=== PATIENT | male | born 1990 | race Two or more races ===

== ENCOUNTER 2020-07-20 11:49 | Emergency (ER) | payer OTHER ==
[2020-07-20] MEDS ORDERED: IBUPROFEN 600 MG TABLET PO STA (12:16)
--- NOTE | 2020-07-20 12:19 | ED Physician Documentation ---
History of Present Illness - Stated complaint Stated Complaint: PALPITATIONS, FEVER, HEADACHE - Chief complaint Chief Complaint: Fever - Additonal information Additional information: 29-year-old male presents to the emergency department for evaluation of fatigue, body aches chills diarrhea and low-grade temperature elevation after receiving his second Pfizer COVID-19 vaccination yesterday. He denies any pertinent past medical history including hypertension or diabetes. Denies tobacco use alcohol use. [employer]. Review of Systems Constitutional: reports: Fever, Chills, Myalgias, Fatigue Ears: reports: Reviewed and negative Nose: denies: Rhinorrhea / runny nose, Congestion, Foreign Body, Reviewed and negative Throat: reports: Reviewed and negative Cardiac: reports: Palpitations. denies: Chest pain / pressure, Pedal edema, Calf pain Respiratory: denies: Dyspnea, Cough GI: reports: Diarrhea. denies: Abdominal Pain, Nausea, Vomiting : denies: Dysuria, Frequency, Hesitancy Skin: reports: Reviewed and negative Musculoskeletal: reports: Reviewed and negative Neurologic: reports: Headache Psychiatric: reports: Reviewed and negative PD PAST MEDICAL HISTORY - Present Medications Home Medications: Ambulatory Orders Medication Instructions Recorded Confirmed No Known Home Medications 07/20/20 07/20/20 - Allergies Allergies/Adverse Reactions: Allergies Allergy/AdvReac Type Severity Reaction Status Date / Time No Known Drug Allergies Allergy Verified 07/20/20 11:57 PD ED PE NORMAL - General General: Alert and oriented X 3, No acute distress, Well developed/nourished - HEENT HEENT: PERRL, EOMI, Moist mucous membranes, Pharynx benign - Neck Neck: Supple, no meningeal sign, No adenopathy - Cardiac Cardiac: RRR, No murmur, Strong equal pulses - Respiratory Respiratory: No respiratory distress, Clear bilaterally - Abdomen Abdomen: Normal bowel sounds, Soft, Non tender - Back Back: No CVA TTP, No spinal TTP - Derm Derm: Normal color, Warm and dry, No rash - Extremities Extremities: No deformity, No tenderness to palpate, Normal ROM s pain - Neuro Neuro: Alert and oriented X 3, 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 His cardiopulmonary exam is unremarkable. He also has essentially normal vital signs. Past medical history without any worrisome problems. We discussed that the constellation of the symptoms likely represents an appropriate immune response after receiving the second COVID-19 vaccine. I did recommend fluids rest ibuprofen and Tylenol for body aches. We discussed that the symptoms typically resolve in 24 to 72 hours. Emergent return precautions were discussed Departure - Departure Disposition: 01 Home, Self Care Clinical Impression: Flu-like symptoms Condition: Stable Record reviewed to determine appropriate education?: Yes Comments: You were seen in the emergency department today for fever, body aches chills, headache diarrhea after receiving your COVID-19 vaccination yesterday. This is a very common immune system response after receiving the second vaccine. The symptoms typically resolve in 24 to 72 hours. We recommend fluids at home plenty of rest. You can take Tylenol or ibuprofen for any discomfort.
[2020-07-20 12:35] VITALS: BP 116/68
== END 2020-07-20 12:27 | disposition home or self-care (01) ==
LOC: ED 11:49
DX: R50.9 Fever, unspecified (principal); R53.83 Other fatigue; R19.7 Diarrhea, unspecified; R00.2 Palpitations; R51.9 Headache, unspecified; T50.Z95A Adverse effect of other vaccines and biological substances, initial encounter; Y84.8 Other medical procedures as the cause of abnormal reaction of the patient, or of later complication, without mention of misadventure at the time of the procedure
CPT/HCPCS: 99282; 99283; A9270

== ENCOUNTER 2020-12-29 11:50 | Emergency (ER) | payer OTHER ==
--- NOTE | 2020-12-29 12:03 | ED Physician Documentation ---
PD HPI ABD PAIN - Stated complaint Stated Complaint: NAUSEA/ABD PX - Chief complaint Chief Complaint: Abd Pain - History obtained from History obtained from: Patient - History of Present Illness Timing - onset: Today Timing - duration: Hours (3) Timing - details: Abrupt onset Pain level max: 8 Pain level now: 6 Quality: Aching, Pain Location: RUQ, Epigastric Associated symptoms: Nausea. No: Fever, Vomiting, Hematemesis, Diarrhea, Constipation, Melena, Hematochezia - Additional information Additional information: Patient is a 30-year-old male who presents to the emergency department with epigastric abdominal pain. He states that he ran a fitness test today for the [employer], afterwards returned home to the [employer], drink water and developed epigastric pain and nausea. Has been present for 2 to 3 hours. Nothing makes it better or worse. No fevers. No chills. No diarrhea or constipation. Has never had similar symptoms previously. Does not on any medications. Denies any alcohol, drug or tobacco use Review of Systems Constitutional: denies: Fever, Chills GI: denies: Vomiting, Diarrhea Skin: denies: Rash Musculoskeletal: denies: Neck pain, Back pain Neurologic: denies: Headache PD PAST MEDICAL HISTORY - Past Medical History Past Medical History: No - Past Surgical History Past Surgical History: No - Present Medications Home Medications: Ambulatory Orders Medication Instructions Recorded Confirmed Esomeprazole Magnesium [Nexium] 40 mg PO DAILY #30 cap 12/29/20 Ondansetron Odt [Zofran] 4 mg TL Q6H PRN #10 tablet 12/29/20 - Allergies Allergies/Adverse Reactions: Allergies Allergy/AdvReac Type Severity Reaction Status Date / Time No Known Drug Allergies Allergy Verified 12/29/20 12:00 - Living Situation Living Arrangement: reports: At home - Social History Does the pt smoke?: No Smoking Status: Never smoker Does the pt drink ETOH?: No Does the pt have substance abuse?: No - Immunizations Immunizations are current?: Yes PD ED PE NORMAL - Vitals Vital signs reviewed: Yes - General General: Alert and oriented X 3, No acute distress - HEENT HEENT: Moist mucous membranes - Neck Neck: Supple, no meningeal sign - Cardiac Cardiac: RRR, Strong equal pulses - Respiratory Respiratory: No respiratory distress, Clear bilaterally - Abdomen Abdomen: Soft, Non distended, Other (TTP epigastric and RUQ, negative lin's sign) - Back Back: No CVA TTP, No spinal TTP - Derm Derm: Warm and dry - Extremities Extremities: No edema - Neuro Neuro: Alert and oriented X 3 - Psych Psych: Normal mood, Normal affect Results - Vitals Vitals: Vital Signs - 24 hr 12/29/20 12/29/20 11:57 14:25 Temperature 36.7 C 36.8 C Heart Rate 93 98 Respiratory 16 18 Rate Blood Pressure 139/91 H 114/89 H O2 Saturation 99 100 Oxygen O2 Source Room air - Labs Labs: Laboratory Tests 12/29/20 12/29/20 12/29/20 12:05 12:24 12:24 WBC 13.5 H RBC 5.24 Hgb 17.9 Hct 49.8 MCV 95.0 H MCH 34.2 H MCHC 35.9 RDW 13.4 Plt Count 202 MPV 10.7 Neut # (Auto) Not Reportable Lymph # (Auto) Not Reportable [place] # (Auto) Not Reportable Eos # (Auto) Not Reportable Baso # (Auto) Not Reportable Absolute Nucleated RBC Not Reportable Total Counted 100 Band Neuts % (Manual) 4 Abnorm Lymph % (Manual) 0 Nucleated RBC % Not Reportable Neutrophils # (Manual) 11.7 H Lymphocytes # (Manual) 1.2 L Monocytes # (Manual) 0.5 Eosinophils # (Manual) 0.0 Basophils # (Manual) 0.0 Differential Comment MANUAL DIFFERENTIAL WBC Morphology NORMAL APPEARANCE Platelet Estimate NORMAL (130-450,000) Platelet Morphology NORMAL APPEARANCE RBC Morph Micro Appear NORMAL APPEARANCE Sodium 132 L Potassium 3.7 Chloride 95 L Carbon Dioxide 22 Anion Gap 15.0 H BUN 17 Creatinine 1.7 H Estimated GFR (MDRD) 48 L Glucose 76 Calcium 9.5 Total Bilirubin 1.8 H AST 40 ALT 40 Alkaline Phosphatase 65 Total Protein 8.3 H Albumin 5.0 Globulin 3.3 Albumin/Globulin Ratio 1.5 Lipase 66 H Urine Color YELLOW Urine Clarity CLEAR Urine pH 6.0 Ur Specific [place] 1.020 Urine Protein NEGATIVE Urine Glucose (UA) NEGATIVE Urine Ketones 15 H Urine Occult Blood NEGATIVE Urine Nitrite NEGATIVE Urine Bilirubin NEGATIVE Urine Urobilinogen 0.2 (NORMAL) Ur Leukocyte Esterase NEGATIVE Ur Microscopic Review NOT INDICATED Urine Culture Comments NOT INDICATED - Rads (name of study) RUQ US Radiology: Final report received, EMP read contemporaneously, See rad report (No acute abnormality) PD MEDICAL DECISION MAKING - ED course Complexity details: reviewed results, re-evaluated patient, considered differential, d/w patient ED course: Symptoms resolved with Maalox, Carafate and IV fluids. Does appear to have significant dehydration. We will have the patient recheck his labs with his doctor next week. Patient tolerating p.o. without difficulty. Asymptomatic here. No acute findings on right upper quadrant ultrasound. Patient counseled regarding signs and symptoms for which I believe and urgent re-evaluation would be necessary. Patient with good understanding of and agreement to plan and is comfortable going home at this time This document was made in part using voice recognition software. While efforts are made to proofread this document, sound alike and grammatical errors may occur. Departure - Departure Disposition: 01 Home, Self Care Clinical Impression: Dehydration Abdominal pain Qualifiers: Abdominal location: unspecified location Qualified Code(s): R10.9 - Unspecified abdominal pain Condition: Good Instructions: ED Abdominal Pain Unkn Cause, ED Dehydration Follow-Up: your,doctor in 1 week [Other] Prescriptions: Esomeprazole Magnesium [Nexium] 40 mg PO DAILY #30 cap Ondansetron Odt [Zofran] 4 mg TL Q6H PRN #10 tablet PRN Reason: Nausea / Vomiting Comments: Your testing today is normal other than dehydration. you should have your creatinine (kidney function) rechecked next week with your doctor to ensure this improves. Drink plenty of water and return if you worsen. We will start you on a medication for your stomach as well to see if this helps. [facility] prescriptions were [facility] to [facility] in [place]. Discharge Date/Time: 12/29/20 14:30
[2020-12-29] MEDS ORDERED: ONDANSETRON 4 MG/2 ML VIAL IVP STA (12:22)
[2020-12-29] MEDS ORDERED: SUCRALFATE 1 GM/10 ML UDC PO STA (12:22)
[2020-12-29] MEDS ORDERED: MAG HYDROX/AL HYDROX/SIMETH 30 ML UDC PO STA (12:22)
[2020-12-29 12:40] LABS: BILIRUBIN,URINE NEGATIVE (NEGATIVE); CLARITY,URINE CLEAR (CLEAR); GLUCOSE, URINE (UA) NEGATIVE (NEGATIVE); KETONES,URINE (UA) 15 mg/dL (NEGATIVE); LEUKOCYTE ESTERASE, URINE NEGATIVE (NEGATIVE); NITRITE,URINE NEGATIVE (NEGATIVE); OCCULT BLOOD,URINE NEGATIVE (NEGATIVE); PROTEIN,URINE NEGATIVE (NEGATIVE); UROBILINOGEN,URINE 0.2 (NORMAL) E.U./dL (NORMAL)
[2020-12-29 12:46] LABS: BASOPHILS % (AUTO) 0.3 %; EOSINOPHILS % (AUTO) 1.3 %; HCT - HEMATOCRIT 49.8 % (42.0-52.0); HGB - HEMOGLOBIN 17.9 g/dL (14.0-18.0); MEAN CORPUSCULAR HEMOGLOBIN 34.2 pg (27.0-31.0); MEAN CORPUSCULAR HGB CONC 35.9 g/dL (32.0-36.0); MEAN PLATELET VOLUME 10.7 fL (7.4-11.4); MONOCYTES % (AUTO) 6.5 %; NEUTROPHILS % (AUTO) 84.2 %; PLT - PLATELET COUNT 202 10^3/uL (130-450); RED BLOOD COUNT 5.24 10^6/uL (4.70-6.10); RED CELL DISTRIBUTION WIDTH 13.4 % (12.0-15.0); WHITE BLOOD COUNT 13.5 x10^3/uL (4.8-10.8)
[2020-12-29 12:50] LABS: ABNORMAL LYMPHS % (MANUAL) 0 %
[2020-12-29 12:57] LABS: ALBUMIN/GLOBULIN RATIO 1.5 (1.0-2.2); BILIRUBIN,TOTAL 1.8 mg/dL (0.2-1.0); CALCIUM 9.5 mg/dL (8.5-10.3); CREATININE 1.7 mg/dL (0.6-1.2); POTASSIUM 3.7 mmol/L (3.5-5.0); TOTAL PROTEIN 8.3 g/dL (6.7-8.2)
[2020-12-29] MEDS ORDERED: SODIUM CHLORIDE 0.9% 1,000 ML IV STA (13:05)
[2020-12-29 13:33] LABS: BAND NEUTROPHILS % (MANUAL) 4 %; LYMPHOCYTES # (MANUAL) 1.2 10^3/uL (1.5-3.5); LYMPHOCYTES % (MANUAL) 9 %; MONOCYTES # (MANUAL) 0.5 10^3/uL (0.0-1.0); NEUTROPHILS # (MANUAL) 11.7 10^3/uL (1.5-6.6)
--- NOTE | 2020-12-29 13:42 | Ultrasound Report ---
PROCEDURE: Abdomen Limited INDICATIONS: RUQ abd pain TECHNIQUE: Real-time focused scanning was performed of the abdomen, with image documentation. COMPARISON: None FINDINGS: Liver is normal in size. Mildly increased liver parenchymal echotexture is seen. No discrete hepatic lesion. There is no gallstone. No gallbladder wall thickening or pericholecystic fluid. There is no intrahepatic biliary ductal dilatation. Common bile duct measures 3 mm in diameter and is within normal limits. Visualized portion of pancreas shows no gross abnormality. Right kidney measures 10.3 cm in length. There is no hydronephrosis or solid appearing renal lesion. IVC is patent. IMPRESSION: 1. Mild hepatic steatosis. 2. Rest of the exam is unremarkable. Reviewed by: Brayan Meek MD on 12/29/2020 1:40 PM PDT Approved by: Brayan Meek MD on 12/29/2020 1:40 PM PDT Station ID: [id number]
[2020-12-29 13:43] LABS: DIFFERENTIAL COMMENT MANUAL DIFFERENTIAL; PLATELET ESTIMATE, MANUAL NORMAL (130-450,000) (NORMAL); PLATELET MORPHOLOGY NORMAL APPEARANCE (NORMAL); RBC MORPHOLOGY (MULTIPLE) NORMAL APPEARANCE (NORMAL); WBC MORPHOLOGY (MULTIPLE) NORMAL APPEARANCE (NORMAL)
[2020-12-29 14:25] VITALS: BP 114/89
== END 2020-12-29 14:30 | disposition home or self-care (01) ==
LOC: ED 11:50
DX: E86.0 Dehydration (principal); R10.13 Epigastric pain
CPT/HCPCS: 36415; 76705; 80053; 81003; 83690; 85025; 96374; 99283; 99284; A9270; 81001; 87086